=== PATIENT | female | born 1945 | race Caucasian/White ===

== ENCOUNTER 2025-03-19 15:19 | Outpatient (OUT) | payer MEDICARE, SELFPAY ==
--- OUTSIDE RECORDS SUMMARY | 2025-03-19 10:08 | XMS_ITS | Continuity of Care Document ---
Author Organization [facility] Address [address] [place] [address] Phone Care Team Providers Care Industrial Manufacturing Technician Name Role Phone Shavon Lorenz MD Primary Care Provider Shavon Lorenz MD Attending Provider [phone] Care Teams Patient Care Team Team Status: Active Member Role/Relationship Status Dates Shavon Lorenz MD Primary Care Provider Active Visit Care Team Team Status: Inactive Member Role/Relationship Status Dates Shavon Lorenz MD Primary Care Provider Active Start: January 24, 2025 End: January 24, 2025Daniel Brower ProviderActiveStart: January 24, 2025 End: January 24, 2025 Visit Care Team Team Status: Inactive Member Role/Relationship Status Dates Shavon Lorenz MD Primary Care Provider Active Start: February 22, 2025 End: February 22, 2025Daniel Brower ProviderActiveStart: February 22, 2025 End: February 22, 2025 Patient Care Team Team Status: Inactive Member Role/Relationship Status Dates Shavon Lorenz MD Primary Care Provider Active Start: March 19, 2025 End: March 19, 2025Daniel Brower ProviderActiveStart: March 19, 2025 End: March 19, 2025 Chief Complaint and Reason for Visit Chief Complaint Admit Date Cough/COVID- January 24, 2025 10 :47am Cough + congested February 22, 2025 8 :19am Back Pain March 19, 2025 2 :29pm Reason for Visit Admit Date Bronchitis January 24, 2025 10 :47am Bronchitis February 22, 2025 8 :19am Lumbar pain March 19, 2025 2 :29pm Allergies, Adverse Reactions, Alerts Allergen Type Severity Reaction Last Updated Verified Status latex Allergy Unknown hives March 19, 2025 2:33pm Yes Active Social History Smoking Status Status Start Date End Date Date of Observa tion Never smoked tobacco (finding) February 22, 2025 8:29am Observation Status Observation Response Date of Response Legal Sex [facility] (finding) [facility] 1945 Family History Relationship Condition Age at Onset Recorded Date/T callum father Unknown Diabetes mellitusUnknownmotherMalignant neoplasmUnknownDeceasedUnknownDiabetes mellitusUnknownsisterDiabetes mellitusUnknown Problems Active Problems Problem Diagnosis/Recorded Date Onset Date Stat us Lumbar pain March 19, 2025 3:01pm Unknown Ac tive Bronchitis January 26, 2025 7:17pm Unknown Ac tive Medications Medication Status Dose Units Route Directions Qty Days Refills S tart Date Stop Date End Date Reason(s) Instructions Adherence Methylprednisolone (Medrol (Vijay)) 4 mg tablets,dose pa ck Active 0 POper package oqvzsiaygs524Lgijpuoc 1st, 2025 12:00amPO PER PKG DIR for 6 days Complies with drug therapyCoenzyme Q10 (Co Q-10) 50 mg gbvycfvItxlvq96XLGJIupbz January 22, 2025 11:00pmComplies with drug therapyCholecalciferol (Vitamin D3) 250 mcg (10,000 unit) mwztfimTboiya224DRJJBlmzmb weekOct2024 11:00pm Complies with drug therapyAscorbic Acid (Vitamin C) 500 mg capsuleActiveMGPO January 22, 2025 11:00pmComplies with drug therapyAzithromycin 250 mg tablet Mqfqmsttnyjq5OF.QOBTEAO28Meubybf 2024 11:00pmFebruary 22, 2025 8:28amFor 250 mg dose pack: take 500 mg today (day 1), then 250 mg for 4 days (days 2-5) POBenzonatate 200 mg ivbrmimMvtilfyalqyr249DXRJ8-5 TIMES PER DAY as needed for xuujl738Vvnitic 2024 11:00pmFebruary 22, 2025 8:28amCefdinir 300 mg cjxesflLwokmeotzzuw849HIRLFvblw rstjq251XnpzlgitFebruary 22, 2025 12:00amDece2024 2:59pm Vital Signs Vital Reading Result Reference Range Collection Date/Time Height 68 [in_i] January 24, 2025 9:32tcHiyhyw40.81 kgOctober 2024 9:52amBody Temperature 98.3 [degF]97.6-99.0Oct2024 9:52amHeart Rate82 /duo69-233Crmardq 8th, 2025 9:52amOxygen saturation by Pulse byhosiaq43 %95-100Oct2024 9:52am BP Nyzyczci747 mm[Hg]100-140Oct2024 9:52amBP Gynodyaul08 mm[Hg]60-100 January 24, 2025 9:52amBMI (Body Mass Index)30.1 kg/h9Osotkfl2024 9:52am Yjagbc96 [in_i]February 22, 2025 8:48glElkpkh57.90 kgNovember 2024 8:25am Body Ypstdrdskfd11.4 [degF]97.6-99.0Nov2024 8:25amHeart Rate83 /min 60-100Nov2024 8:25amBP Jgigkxfs191 mm[Hg]100-140Nov2024 8:25amBP Xbxykkbkx14 mm[Hg]60-100Nov2024 8:25amBMI (Body Mass Index) 29.7 kg/q1Sovxkodt2024 8:43scYnfrzf26 [in_i]March 19, 2025 2:33pm Eufvte12.26 kgDecember 2024 2:33pmHeart Rate81 /mzz74-987Kkqrhicb 1st, 2025 2:38pmBP Iljaxszc279 mm[Hg]100-140December 2024 2:38pmBP Zcggbglkt41 mm[Hg]60-100December 2024 2:38pmBMI (Body Mass Index)30.2 kg/t3Znepavfn 2024 2:33pm Advance Directives Advance Directive Response Recorded Date/ Time Advance Directives No January 24, 2025 9:42am Insurance Providers Guarantor Randi Alaniz Address [address] [place] [id number] Info.Home Phone: Coverage Status Update:2025 Payer Group Member ID Coverage Type Subscriber Relationship to Subscriber Effective Date Expiration Date Medicare [id number] A Emerick Id: [id number] [address] [facility] [address] Home Phone: selfAARP Medicare Advantage PFFS [id number] Real Alaniz Id: [id number] [address] [facility] [address] Home Phone: Self Encounters Encounter Location(s) Arrival/Admit Date Discharge/Departure Date Discharge/Departure Disposition Provider(s) Departed Physician/ Provider Office Visit -[facility] January 24, 2025 10:47am January 24, 2025 11:09am Discharged to home care or self care (routine discharge) Shavon Lorenz MD Departed Physician/ Provider Office Visit -[facility] February 22, 2025 8:19am February 22, 2025 8:57am Discharged to home care or self care (routine discharge) Shavon Lorenz MD Departed Physician/ Provider Office Visit -[facility] March 19, 2025 2:29pm March 19, 2025 3:06pm Discharged to home care or self care (routine discharge) Shavon Lorenz MD Recent Diagnosis Onset Date Admit Date Bronchitis Unknown January 24 10:47am Bronchitis Unknown February 22 8:19am Lumbar pain Unknown March 19 2:29pm Assessments Diagnosis Onset Date Resolution Status Admit Date Bronchitis acuteOctober 2024 10:47amBronchitisacuteNovember 2024 8:19amLumbar painacuteDecember 2024 2:29pm Plan of Treatment Author [facility]avon Lorenz [facility] CenterAuthoredOctober 2024 7:18pmDiscussed diagnosis with patient. Patient to start Zithromax. Patient to take Zithromax daily with food as prescribed. Finish entire course of antibiotic. Tessalon Pearles ordered to take as needed for cough. Increase fluids and rest. Ftnw-uaa-sbgjcdz antipyretics as needed. Warning signs and symptoms reviewed with patient today. Patient to go immediately to the ER should she experience any of these. Patient to notify office should her symptoms persist and not improve. Patient verbalizes understanding and agrees to treatment plan. Author Shavon Lorenz [facility] CenterAuthoredNovember 2024 9:37amDiscussed diagnosis with patient. Patient to start Cefdinir. Finish entire course of antibiotic. Tessalon Pearles ordered to take as needed for cough. Increase fluids and rest. Wslr-hco-escnrpt antipyretics as needed. Warning signs and symptoms reviewed with patient today. Patient to go immediately to the ER should she experience any of these. Patient to notify office should her symptoms persist and not improve. call on 02/26, if failure to improve for CXR. Patient verbalizes understanding and agrees to treatment plan. Future Tests Future scheduled test information is unavailable Pending Tests Test Name Ordered Date Scheduled Date XR lumbar spine 2-3V* March 19, 2025 3:00pm Future Visits Future appointment information is unavailable Future Procedures Future procedure information is unavailable Future Medications Future medication information is unavailable Patient Instructions Instruction Admit Date Low back pain in adults March 19 2:29pm
--- OUTSIDE RECORDS SUMMARY | 2025-03-19 15:32 | XMS_ITS | Clinical Summary ---
Author Organization [facility] Address [address] [place], [place] [id number] Care Team Providers Care Signals Intelligence Analysis Manager Name Role Phone Unavailable Primary Care Provider Unavailabl e Allergies No known active allergies Medications MedicationSigDispense QuantityRefillsLast FilledStart DateEnd DateStatus multivitamin tablet Take 1 tablet by mouth once daily.ctive Social History Tobacco UseTypesPacks/DayYears UsedDateSmoking Tobacco: Never Assessed CommentsUnknownSex and Gender InformationValueDate RecordedSex Assigned at Not on fileLegal BxyHtslum81/02/2012 9:27 AM ESTGender IdentityNot on fileSexual OrientationNot on file Plan of Treatment Health MaintenanceDue DateLast DoneCommentsAnxiety Xrcwkxrnl46/29/1964Depression Kgmsuwypn26/29/1964Diabetes Fddtrcjhs23/29/1991Pneumococcal Vaccine: 50+ (1 of 1 - PCV)1995Shingrix Vaccine (1 of 2)1995Bone Density Screening 2010DTaP,Tdap,Td Vaccine (2 - Td or Tdap)RSV Vaccine (1 - 1-dose 75+ series)2020dvance Directive Banxcmtqga27/01/2025ovid-19 Vaccine (1 - 2024- season)2024Influenza Vaccine (#1)2024 01/17/2015, 01/17/2013, 02/09/2011, Additional history exists Insurance * Guarantor: Randi Alaniz AAccount TypeRelation to PatientDate of BirthPhone Billing YsbtafiYtnsjcNlhi77/29/1946 [address] [place] [address] [id number] [place] [address]
--- OUTSIDE RECORDS SUMMARY | 2025-03-19 15:32 | XMS_ITS | Clinical Summary ---
Author Organization [facility] Address [address] [place] [address] Phone Care Team Providers Care Metal Moulder Name Role Phone Chanel Wayne PA-C Primary Care Provider Social History Tobacco UseTypesPacks/DayYears UsedDateSmoking Tobacco: Never Assessed CommentsUnknownSex and Gender InformationValueDate RecordedSex Assigned at Not on fileLegal CpcAqorar07/25/2022 11:11 AM ESTGender IdentityNot on file Sexual OrientationNot on file Plan of Treatment DateTypeDepartmentCare Team (Latest Contact Info)Lzgmpuywwrf78/04/2025 10:30 AM ESTClinical Support [facility] [address] [place] [address] [phone] Colin Enriquez, AUD, CCC-A [address] [facility], [address] [phone] 03/22/2025 10:40 AM ESTOffice Visit [facility] [address] [place] [address] Francisco Garvey MD [address] [facility], [address] [id number] Health MaintenanceDue DateLast DoneCommentsLipid Panel1945Medicare Annual Wellness Visit (AWV)1945Hepatitis C Ncknmdsmy58/29/1964Zoster Vaccines (1 of 2)1995DTaP/Tdap/Td Vaccines (2 - Td or Tdap)Bone Density ScanPneumococcal Vaccine (2 of 2 - PPSV23, PCV20, or PCV21)RSV High Risk: (Elderly (60+) or Population) (1 - 1-dose 75+ series)2020Influenza Vaccine (#1)5104/26/2017, 01/17/2018, 02/21/2015, Additional history existsCOVID-19 Vaccine ( - 2024- season)2024HIB VaccinesAged OutNo longer eligible based on patient's age to complete this topicHPV VaccinesAged OutNo longer eligible based on patient's age to complete this topicHepatitis A VaccinesAged OutNo longer eligible based on patient's age to complete this topicHepatitis B VaccinesAged OutNo longer eligible based on patient's age to complete this topicIPV VaccinesAged OutNo longer eligible based on patient's age to complete this topicMeningococcal VaccineAged OutNo longer eligible based on patient's age to complete this topic Rotavirus VaccinesAged OutNo longer eligible based on patient's age to complete this topic Insurance Care Teams Team MemberRelationshipSpecialtyStart DateEnd Date Valentin-Chanel Walsh PA-C [address] [facility], [place] [address] PCP - General04/23/21
--- OUTSIDE RECORDS SUMMARY | 2025-03-19 15:32 | XMS_ITS | Clinical Summary ---
Author Organization [facility] Address [address] [facility], [address] [place] [address] Care Team Providers Care Grassland Conservationist Name Role Phone Shavon Lorenz MD Primary Care Provider [phone] Allergies No known active allergies Medications MedicationSigDispense QuantityRefillsLast FilledStart DateEnd DateStatus Cholecalciferol (VITAMIN D3 PO) Take 2,400 Int'l Units by mouth.Active Ascorbic Acid (VITAMIN C) 500 MG tablet Take 500 mg by mouth daily.Active Arcade-3 Fatty Acids (OMEGA 3 PO) Take by mouth 2 times daily.Active acetaminophen (TYLENOL) 500 MG tablet Take 500 mg by mouth every 6 hours as needed for Pain PRN rib painActive Active Problems ProblemNoted DateDiagnosed DateAsthmaAllergic rhinitis Overview (12/24/2014): replace inactive diagnosis AnemiaOsteoarthritis of lumbar spine Overview (12/24/2014): replace inactive diagnosis ColitisHyperlipidemiaVitamin D deficiency Resolved Problems ProblemNoted DateDiagnosed DateResolved DateDeep venous ccupttoonv51/09/2020 06/26/2019Pain and swelling of left lower legOsteoarthritis of lumbar spine06/06/2015 Overview (12/24/2014): replace inactive diagnosis H/O right breast qoypzj7606/06/2015Shoulder nplvysf4006/06/2015 Overview (09/18/2011): left Immunizations ImmunizationAdministration DatesNext DueInfluenza Virus Imkpxmn9402/21/2015, 01/17/2015,01/17/2013,02/01/2012,02/09/2011,02/24/2007Influenza Whole01/17/2015, 02/17/1998Influenza, FLUZONE High Dose, (age 65 y+), IM, Trivalent PF, 0.5mL 02/24/2018,01/17/2018Pneumococcal, PCV-13, PREVNAR 13, (age 6w+), IM, 0.5mL 02/21/2015TDaP, ADACEL (age 10y-64y), BOOSTRIX (age 10y+), IM, 0.5mL08/04/2002 Family History Medical HistoryRelationNameCommentsDiabetesFatherEmphysemaFatherHeart Attack FatherBreast CancerMotherRelationNameStatusCommentsFatherMother Social History Tobacco UseTypesPacks/DayYears UsedDateSmoking Tobacco: NeverSmokeless Tobacco: Never Tobacco Cessation:Counseling Given: Not Answered Alcohol UseStandard Drinks/WeekCommentsNo0 (1 standard drink = 0.6 oz pure alcohol)AUDIT-CAnswerDate RecordedQ1: How often do you have a drink containing alcohol?Never11/19/2021Q2: How many drinks containing alcohol do you have on a typical day when you are drinking?Patient does not drink11/19/2021Q3: How often do you have six or more drinks on one occasion?Never11/19/2021verall Financial Resource Strain (CARDIA)AnswerDate RecordedHow hard is it for you to pay for the very basics like food, housing, medical care, and heating?Not very hard 1PHQ-2AnswerDate RecordedPHQ-9 Total Lbfyn573Exercise Vital SignAnswerDate RecordedOn average, how many days per week do you engage in moderate to strenuous exercise (like a brisk walk)?5 days2On average, how many minutes do you engage in exercise at this level?50 min11/19/2021Hunger Vital SignAnswerDate RecordedWithin the past 12 months, you worried that your food would run out before you got the money to buymore.Never true11/26/2020 Within the past 12 months, the food you bought just didn't last and you didn't have money to get more.Never true11/26/2020RAPARE - TransportationAnswerDate RecordedIn the past 12 months, has lack of transportation kept you from medical appointments or from getting medications?No11/26/2020In the past 12 months, has lack of transportation kept you from meetings, work, or from getting things needed for daily living?No11/26/2020CommentsNoSex and Gender Information ValueDate RecordedSex Assigned at BirthNot on fileLegal LbzKsvdoh97/12/2013 1:08 AM ESTGender IdentityNot on fileSexual OrientationNot on file Last Filed Vital Signs Vital SignReadingTime TakenCommentsBlood Upzrdwpi197/7808 9:53 AM EDT Xzkui691611/26/2020 9:53 AM ZELHedeqtfdvcw84 ??C (98.6 ??F)11/26/2020 9:53 AM EDT Respiratory Nwym8099 9:53 AM EDTOxygen Aqwzbzilxb26%11/26/2020 9:53 AM EDTInhaled Oxygen Concentration--Oxbhvd92.7 kg (200 lb)05/19/2023 10:16 AM EST Yamonu207.7 cm (5' 8 )05/19/2023 10:16 AM ESTBody Mass Index30.41005/19/2023 10:16 AM EST Plan of Treatment Health MaintenanceDue DateLast DoneCommentsDepression Bpozdh0005/17/1957Hepatitis C xypvnu7105/17/1963Shingles vaccine (1 of 2)1995DTaP/Tdap/Td vaccine (2 - Td or Tdap)Pneumococcal 50+ years Vaccine (2 of 2 - PPSV23, PCV20, or PCV21)Respiratory Syncytial Virus (RSV) or age 60 yrs+ (1 - 1-dose 75+ series)2020nnual Wellness Visit (Medicare) 308/06/2021, 11/19/2021Flu vaccine (#1)510/, 02/24/2018, 01/17/2018, Additional history existsCOVID-19 Vaccine ( season)7517WylvhbvriqeEoygcjnewlzw36/27/2012DEXA (modify frequency per FRAX score)Qqxukdtpq40/05/5871K6O test (Diabetic or Prediabetic)Discontinued 01/18/2022, 01/12/2021, 07/04/20173197QqpjqxIftkwafmciae35/02/2022, 01/12/2021, 07/04/2017Breast cancer tysknhGnbbovbckjyj97/16/2025, 05/19/2023, 05/01/2022, Additional history existsHepatitis A vaccineAged OutNo longer eligible based on patient's age to complete this topicHepatitis B vaccineAged OutNo longer eligible based on patient's age to complete this topicHib vaccineAged OutNo longer eligible based on patient's age to complete this topicMeningococcal (ACWY) vaccineAged OutNo longer eligible based on patient's age to complete this topicMeningococcal B vaccineAged OutNo longer eligible based on patient's age to complete this topicPolio vaccineAged OutNo longer eligible based on patient's age to complete this topic Procedures Procedure NamePriorityDate/TimeAssociated DiagnosisCommentsMAM DARSHAN DIGITAL SCREEN SELF REFERRAL W OR WO CAD XBEDNHJLXLhbbqck18/16/2025 2:43 PM EDT Screening mammogram for breast cancer LIPID GXXNGCdegaqu07/02/2022 1:52 PM EDT HEMOGLOBIN F9ELugjkgy87/02/2022 1:52 PM EDT DEXA BONE DENSITY AXIAL NTBVOCBEEdwjont44/05/2012 9:51 AM EST COLONOSCOPY W/ OR W/O ITUAKGZsvsseh94/27/2012from Last 3 Months or Most Recently Relevant to Health Maintenance Results * [facility] DARSHAN DIGITAL SCREEN SELF REFERRAL W OR WO CAD BILATERAL (11/01/2024 2:43 PM EDT)Anatomical RegionLateralityModalityBreastBilateralMammographySpecimen (Source)Anatomical Location / LateralityCollection Method / VolumeCollection TimeReceived Time11/03/2024 11:18 AM EDT Impressions 11/03/2024 11:26 AM EDT No mammographic evidence for malignancy. BIRADS: BIRADS - CATEGORY 1 Negative, no evidence of malignancy. ??Normal interval follow-up is recommended in 12 months. OVERALL ASSESSMENT - NEGATIVE A letter of notification will be sent to the patient regarding the results. The [employer] recommends annual mammograms for women 40 years and older. Performing Facility: [facility], [place] [address] Narrative 11/03/2024 11:26 AM EDT EXAMINATION: SCREENING DIGITAL BILATERAL MAMMOGRAM WITH TOMOSYNTHESIS, 11/01/2024 1:11 pm TECHNIQUE: Screening mammography of the bilateral breasts was performed with tomosynthesis. ??2D standard and 3D tomosynthesis combination imaging performed through both breasts in the MLO and CC projection. ??Computer aided detection was utilized in the interpretation of this exam. COMPARISON: Prior exams, most recently performed in 2023. HISTORY: Screening. Tyrer-Cuzick v.8 Estimated Lifetime Risk: 6% As per [employer] and [employer] guidelines, a calculated lifetime risk score higher than 20% qualifies as higher than average risk. Patients at higher than average risk should consider adjunctive screening modalities such as screening contrast enhanced breast MRI. Breast cancer risk score is calculated based on information provided by the patient at time of visit in addition to a patient's readily available medical history. Please note that inadequate breast health history, which is predominantly based on patient reported data, may result in an inaccurate calculation. FINDINGS: There are scattered areas of fibroglandular density. There is no new dominant mass, suspicious microcalcification, or area of architectural distortion. Vascular calcifications are present. ??Or higher year old area doing Authorizing ProviderResult TypeResult StatusSteve Renae [facility] MAMMO[facility]APHY ORDERABLESFinal Result * (ABNORMAL) Hemoglobin A1C (01/18/2022 1:52 PM EDT)ComponentValueRef RangeTest MethodAnalysis TimePerformed AtPathologist SignatureHemoglobin A1C6.6(H)4.8 - 5.9 %01/18/2022 1:44 PM [facility] LABSpecimen (Source) Anatomical Location / LateralityCollection Method / VolumeCollection Time Received Time01/18/2022 1:52 PM EDT1 1:52 PM EDT Narrative Authorizing ProviderResult TypeResult StatusUnknown Provider ResultCHEMISTRY ORDERABLESFinal ResultPerforming OrganizationAddressCity/State/ZIP CodePhone Number [facility] [address] [place] [id number] [phone] * Lipid Panel (01/18/2022 1:52 PM EDT)ComponentValueRef RangeTest MethodAnalysis TimePerformed AtPathologist SignatureCholesterol, Tcshn1726 - 199 mg/dL 01/18/2022 2:32 PM [facility] LABComment:ATP III Cholesterol classification is Desirable.Bniholkeiknxd235 - 150 mg/dL01/18/2022 2:32 PM [facility] LABComment:ATP III Triglycerides Classification is Normal.ZGS0323 - 59 mg/dL01/18/2022 2:32 PM [facility] LABComment: ATP III HDL Cholesterol Classification is Desirable. Expected Values: Males: >55 = No Risk ?35-55 = Moderate Risk <35 = High Risk Females: >65 = No Risk ?45-65 = Moderate Risk <45 = High Risk NCEP Guidelines: ??Third Report August 2000 >59 = negative risk factor for CHD <40 = major risk factor for CHD LDL Nkzisfstqu0583 - 129 mg/dL01/18/2022 2:32 PM [facility] LABComment:ATP III LDL Classification is Near Optimal.Specimen (Source) Anatomical Location / LateralityCollection Method / VolumeCollection Time Received Time01/18/2022 1:52 PM EDT1 1:52 PM EDT Narrative Authorizing ProviderResult TypeResult StatusUnknown Provider ResultCHEMISTRY ORDERABLESFinal ResultPerforming OrganizationAddressCity/State/ZIP CodePhone Number [facility] [address] [place] [id number], [facility] [phone] * DEXA bone density axial skeleton (03/23/2012 9:51 AM EST)Anatomical Region LateralityModalityHead, C-spine, T-spine, L-spine, ChestOtherSpecimen (Source) Anatomical Location / LateralityCollection Method / VolumeCollection Time Received Time03/23/2012 9:51 AM EST Narrative 03/25/2012 3:42 PM EST FOR CHARGE PURPOSES ONLY REPORT TO FOLLOW ? [employer]- ??RADWHERE ? Read By- FLOR ANDERS ?? M.D. ? Released By- FLOR ANDERS ?? M.D. ? Released Date Time- 03/25/121541 This document has been electronically signed. Procedure Note 03/25/2012 FOR CHARGE PURPOSES ONLY REPORT TO FOLLOW [employer]- DAVIDWHERE Read By- FLOR ANDERS M.D. Released By- FLOR ANDERS M.D. Released Date Time- 03/25/121541 This document has been electronically signed. Authorizing ProviderResult TypeResult StatusJoseluis BOYD DEXA ORDERABLES Final Result * COLONOSCOPY W/ OR W/O BIOPSY (10/14/2011) Narrative Authorizing ProviderResult TypeResult StatusHistorical Provider MDGENERAL SURGICAL ORDERABLESFinal Result from Last 3 Months or Most Recently Relevant to Health Maintenance Insurance Advance Directives TypeDate RecordedPatient RepresentativeExplanationACP-Advance Directive12/28/2012 11:37 AMdnr signed 12/28/12 Care Teams Team MemberRelationshipSpecialtyStart DateEnd Date Shavon Lorenz MD [address] [place] [address] PCP - GeneralFamily Medicine05/11/23
--- OUTSIDE RECORDS SUMMARY | 2025-03-19 15:32 | XMS_ITS | Clinical Summary ---
Author Organization [facility] Address [address] [place] [address] Care Team Providers Care General Office Assistant Name Role Phone Unavailable Primary Care Provider Unavailabl e Social History Tobacco UseTypesPacks/DayYears UsedDateSmoking Tobacco: Never Assessed CommentsUnknownSex and Gender InformationValueDate RecordedSex Assigned at Not on fileLegal PtfDfvtee49/26/2014 4:07 AM EDTGender IdentityNot on fileSexual OrientationNot on file Plan of Treatment Not on file
--- OUTSIDE RECORDS SUMMARY | 2025-03-19 15:32 | XMS_ITS | Clinical Summary ---
Author Organization [facility] Address [address] [place] [address] Care Team Providers Care Automotive Worker Foreman Name Role Phone Chanel Wayne Primary Care Provider Active Problems ProblemNoted DateDiagnosed DateOsteoarthritis of lumbar spine12/24/2014 Overview (01/30/2022): replace inactive diagnosis Allergic /07/2015 Overview (01/30/2022): replace inactive diagnosis Asthma ([facility])09/18/2011Vitamin D bpjnsnrgno76/01/2743Bmnjooylrdntio20/01/2012 Qnynidy5109/18/20113031Cowymu31/01/2012 Immunizations ImmunizationAdministration DatesNext DueInfluenza Whole01/17/2015,02/17/1998 Influenza, High Dose Seasonal, Preservative Free02/24/2018,01/17/2018Influenza, Gkcmrvennds87/05/2015,01/17/2015,01/17/2013,02/01/2012,02/09/2011,02/24/2007 Pneumococcal Conjugate PCV 13104/23/20144457Tlmi22/18/2003 Family History Medical HistoryRelationNameCommentsDiabetesFatherEmphysemaFatherHeart attack FatherBreast cancerMotherRelationNameStatusCommentsFatherMother Social History Tobacco UseTypesPacks/DayYears UsedDateSmoking Tobacco: NeverSmokeless Tobacco: NeverAlcohol UseStandard Drinks/WeekCommentsNo0 (1 standard drink = 0.6 oz pure alcohol)CommentsUnknownSex and Gender InformationValueDate RecordedSex Assigned at BirthNot on fileLegal SmlIvxdrb95/01/2022 4:39 PM EDTGender Identity Not on fileSexual OrientationNot on file Last Filed Vital Signs Vital SignReadingTime TakenCommentsBlood Mwovvkdr361/7808 9:53 AM EDT Neyte853011/26/2020 9:53 AM NNDDgwgaddtxrw04 ??C (98.6 ??F)11/26/2020 9:53 AM EDT Respiratory Pqfr367611/26/2020 9:53 AM EDTOxygen Ascrikggcc26%11/26/2020 9:53 AM EDTInhaled Oxygen Concentration--Akvnye37.4 kg (197 lb)11/26/2020 9:53 AM EDT Vezork310.7 cm (5' 8 )11/26/2020 9:53 AM EDTBody Mass Index29.95011/26/2020 9:53 AM EDT Plan of Treatment Not on file Care Teams Team MemberRelationshipSpecialtyStart DateEnd Date Valentin-Chanel Walsh [address] [place] [address] PCP - [facility]11/05/20
--- OUTSIDE RECORDS SUMMARY | 2025-03-19 15:32 | XMS_ITS | Clinical Summary ---
Author Organization [facility] Address [address] [place] [address] Care Team Providers Care Vehicle And Equipment Cleaner Name Role Phone Unavailable Primary Care Provider Unavailabl e Social History Tobacco UseTypesPacks/DayYears UsedDateSmoking Tobacco: Never Assessed CommentsUnknownSex and Gender InformationValueDate RecordedSex Assigned at Not on fileLegal SzeYemlfl90/15/2023 10:13 PM EDTGender IdentityNot on file Sexual OrientationNot on file Last Filed Vital Signs Vital SignReadingTime TakenCommentsBlood Whzlllvn269/8105/12/2022 12:00 PM EST Pulse--Temperature--Respiratory Rate--Oxygen Saturation--Inhaled Oxygen Concentration--Haleea99.3 kg (199 lb)05/12/2022 12:00 PM LUCKnlqdw391.7 cm (5' 8 )05/12/2022 12:00 PM ESTBody Mass Index30.26005/12/2022 12:00 PM EST Plan of Treatment Not on file Insurance
--- NOTE | 2025-03-19 15:56 | XR_ITS ---
[address] [address] Patient Name: ZAK CLARK MRN: [id number] date: 1945 Sex: F Assigned Patient Location: [facility] Current Patient Location: [facility] Accession/Order Number: [id number] Exam Date: 03/19/2025 15:48 Report Date: 03/19/2025 16:20 At the request of: ANGEL SWAN MD Procedure: XR lumbar spine 2-3V XR lumbar spine 2-3V 03/19/2025 3:56 PM SIGNS AND SYMPTOMS: ^Lumbar spine back pain PROTOCOLS: Frontal and lateral radiographs of the lumbar spine COMPARISON: None FINDINGS: The alignment, development and bony structures are normal. There is no fracture or destructive lesion. There is mild to moderate disc height loss at L4-5 and L5-S1. There is facet hypertrophy throughout. Degenerative changes are noted in the sacroiliac joints. XR/XR lumbar spine 2-3V IMPRESSION: No fracture or subluxation. Degenerative changes are noted in the lumbar spine greatest at L4-5 and L5-S1. Impression dictated by: Terry Patel M.D. 03/19/2025 4:20 PM Dictation Location: [place] [address] Electronically authenticated by: [id number] Y Date: 03/19/2025 16:20
== END 2025-03-19 15:20 | disposition home or self-care (01) ==
PROVIDERS: PCP Family Medicine; Visit Provider Family Medicine
DX: M54.50 Low back pain, unspecified (principal); M51.369 Other intervertebral disc degeneration, lumbar region without mention of lumbar back pain or lower extremity pain
CPT/HCPCS: 72100